=== PATIENT | male | born 1970 | race Caucasian/White ===

== ENCOUNTER 2017-06-10 10:41 | Emergency (ER) | payer BC ==
[2017-06-10 10:53] VITALS: BP 164/104
--- NOTE | 2017-06-10 12:00 | ER Document Report ---
HPI - HPI Pain Level: 5 Notes: Patient is a 47-year-old male with no significant past medical history who presents the ED complaining of left cheek swelling and dental pain 2 days. Patient states that he started feeling pain in his teeth when he was chewing 2 days ago so he went to an urgent care and received Augmentin along with tramadol. Patient states that he began noticing swelling to that area 2 days later so he presents to the ED for further evaluation. Patient states that he believes it is a sinus infection, but denies any sinus symptoms. He has not noticed any abscess or purulent discharge anywhere. He has no trouble swallowing or drooling. He has been taking [id number] meds as well with minimal relief. He has not noticed any obvious redness to his face. Patient states that he has had extensive dental work done to his upper teeth with root canals and crowns. Denies any headache, fever, neck pain, URI, sore throat, chest pain, palpitations, syncope, cough, shortness of breath, wheeze, dyspnea, abdominal pain, nausea/vomiting/diarrhea, urinary retention, dysuria, or rash. [place] and [place] on his way home. - ROS Notes: REVIEW OF SYSTEMS: CONSTITUTIONAL : Denies fever, chills, or sweats. Denies recent illness. EENT: see hpi. no eye complaints CARDIOVASCULAR: Denies chest pain. Denies palpitations or racing or irregular heart beat. Denies ankle edema. RESPIRATORY: Denies cough, cold, or chest congestion. Denies shortness of breath, difficulty breathing, or wheezing. GASTROINTESTINAL: Denies abdominal pain or distention. Denies nausea, vomiting , or diarrhea. Denies blood in vomitus, stools, or per rectum. Denies black, tarry stools. Denies constipation. GENITOURINARY: Denies difficulty urinating, painful urination, burning, frequency, blood in urine, or discharge. MUSCULOSKELETAL: Denies back or neck pain or stiffness. Denies joint pain or swelling. SKIN: Denies rash, lesions or sores. NEUROLOGICAL: Denies confusion or altered mental status. Denies passing out or loss of consciousness. Denies dizziness or lightheadedness. Denies headache. Denies weakness or paralysis or loss of use of either side. Denies problems with gait or speech. Denies sensory loss, numbness, or tingling. ALL OTHER SYSTEMS REVIEWED AND NEGATIVE. Dictation was performed using [employer] voice recognition software - DERM Skin Color: Normal Past Medical History - Social History Smoking Status: Never Smoker Chew tobacco use (# tins/day): No Frequency of alcohol use: Occasional Drug Abuse: None Family History: Reviewed & Not Pertinent Patient has suicidal ideation: No Patient has homicidal ideation: No Renal/ Medical History: Denies: Hx Peritoneal Dialysis Past Surgical History: Reports: Hx Oral Surgery - teeth extracted Vertical Provider Document - CONSTITUTIONAL Agree With Documented VS: Yes Notes: PHYSICAL EXAMINATION: GENERAL: Well-appearing, well-nourished and in no acute distress. HEAD: Atraumatic, normocephalic. EYES: Pupils equal round and reactive to light, extraocular movements intact, sclera anicteric, conjunctiva are normal. ENT: EAC clear b/l. TM's intact b/l without erythema, fluid, or perforation. Nares patent and without discharge. oropharynx clear without exudates. No tonsilar hypertrophy or erythema. Moist mucous membranes. No sinus tenderness. Uvula midline. No palatine shift. No tongue protrusion. No respiratory compromise. Mouth: Poor dentition. + mild decay and mild gingivitis. No obvious abscess or discharge noted. + mild left sided facial swelling in the area of the #19- 20 teeth. + tenderness to tooth #19-20. No induration or erythema of the face. No streaks. NECK: Normal range of motion, supple without lymphadenopathy. No rigidity/ meningismus. LUNGS: Breath sounds clear to auscultation bilaterally and equal. No wheezes rales or rhonchi. HEART: Regular rate and rhythm without murmurs, rubs, gallops. NEUROLOGICAL: Cranial nerves grossly intact. Normal speech, normal gait. Normal sensory, motor exams PSYCH: Normal mood, normal affect. SKIN: Warm, Dry, normal turgor, no rashes or lesions noted. - INFECTION CONTROL TRAVEL OUTSIDE OF THE [place] IN LAST 30 DAYS: No - RESPIRATORY O2 Sat by Pulse Oximetry: 98 Course - Re-evaluation Re-evalutation: 06/10/17 11:58 Patient is an afebrile, well-hydrated, 47-year-old male who presents to the ED with mild left-sided facial swelling and dental pain, suspect infection with a dental etiology. Vitals are stable. PE otherwise unremarkable. Reiterated to patient that I believe that this is a dental issue and not a true sinus infection as he has been asymptomatic otherwise. Patient has no immunocompromised health condition and is not allergic to any p.o. medications. He also appears in stable condition for outpatient treatment. Low suspicion for any meningitis, sepsis, peritonsillar/pharyngeal abscess, respiratory compromise, Steve's, temporal arteritis, or other emergent systemic condition at this time. Patient is aware this condition can change from initial presentation and he needs to monitor symptoms closely. I will send him home with a prescription for clindamycin to take 4 times a day. Conservative measures otherwise for symptoms. Call to schedule an appointment with a dentist for further evaluation and management. Recheck with your PCM this week as well. Return to the ED with any worsening/concerning symptoms otherwise as reviewed in discharge. Patient is in agreement. - Vital Signs Vital signs: Temp Pulse Resp BP Pulse Ox 98.6 F 68 16 164/104 H 98 06/10/17 10:47 06/10/17 10:47 06/10/17 10:47 06/10/17 10:47 06/10/17 10:47 Discharge - Discharge Clinical Impression: Facial swelling, Dental infection Condition: Stable Disposition: HOME, SELF-CARE Instructions: Dental Infection or Abscess ([facility]), Clindamycin ([facility]), Follow-Up Care ([facility]) Additional Instructions: Valier and floss twice daily Maintain fluid intake Take antibiotics as directed Mouthwash, salt water gargles, peroxide rinse as needed Tylenol/ibuprofen as needed Recheck with PCM this week Call today/tomorrow and schedule an appointment with your dentist for further evaluation Return to the ED with any worsening symptoms and/or development of fever, headache, facial swelling, swelling of lips/tongue/throat, trouble swallowing, drooling, hoarseness, neck pain/stiffness, chest pain, palpitations, syncope, shortness of breath, trouble breathing, abdominal pain, n/v/d, numbness/tingling , or other worsening symptoms that are concerning to you. Prescriptions: Clindamycin HCl [Cleocin 300 mg Capsule] 300 mg PO QID #40 capsule Forms: Elevated Blood Pressure Referrals: [facility] [Provider Group] - Follow up as needed [facility] [Provider Group] - Follow up as needed
== END 2017-06-10 12:17 | disposition home or self-care (01) ==
LOC: ER 10:41
DX: R22.0 Localized swelling, mass and lump, head (principal); K04.7 Periapical abscess without sinus
CPT/HCPCS: 99283